=== PATIENT | male | born 1945 | race Caucasian/White ===

== ENCOUNTER → 2017-09-29 12:15 | Outpatient (CLI) | payer MEDICARE, SELFPAY ==
[2017-09-29 12:35] LABS: Cholesterol 163 mg/dL (200); High Density Lipoprotein 46 mg/dL; Triglycerides 117 mg/dL; Very Low Density Lipoprotein 23 mg/dL (5-40)
== END ==
PROVIDERS: Family Provider Internal Medicine; PCP Internal Medicine; Visit Provider Internal Medicine
DX: Z79.899 Other long term (current) drug therapy (principal)
CPT/HCPCS: 80061

== ENCOUNTER → 2017-10-03 10:28 | Outpatient (CLI) | payer MEDICARE, SELFPAY ==
[2017-10-03 10:54] LABS: Absolute Lymphocyte Count 1.34 X10^3/ul (0.83-4.51); Absolute Neutrophil Count 3.2 X10^3/uL (2.0-7.7); Basophil# 0.02 X10^3/uL; Basophil% 0.4 % (0-1); Eosinophil# 0.16 X10^3/uL; Hematocrit 39.6 % (40-54); Hemoglobin 13.1 g/dl (13.0-16.5); Lymphocyte # 1.34 X10^3/ul (4.0); Lymphocyte % 25.5 % (19-41); Mean Corp Hgb Conc 33.1 g/gl (32-36); Mean Corpuscular Hgb 32.5 pg (27.0-32.0); Mean Corpuscular Volume 98.3 fL (80-94); Mean Platelet Vol. 10.4 fl (6.2-12.0); Monocyte# 0.53 X10^3/uL; Monocyte% 10.1 % (0-10); Neutrophil % 60.8 % (47-70); Platelet Count 186 K/mm3 (150-450); RBC Distribution Width CV 12.7 % (11.6-14.6); RBC Distribution Width SD 45.2 fl (35.1-43.9); Red Blood Count 4.03 M/mm3 (4.6-6.2); White Blood Count 5.3 K/mm3 (4.4-11.0)
[2017-10-03 10:55] LABS: POSITIVE COUNT NO; POSITIVE DIFFERENTIAL NO
[2017-10-03 11:02] LABS: Erythrocyte Sedimentation Rate 19 mm/hr (0-20)
[2017-10-03 11:38] LABS: ALB/GLOB Ratio 0.9 RATIO (0.9-2.4); AST(SGOT) 26 U/L (15-37); Alanine Aminotransfer ALT/SGPT 36 U/L (16-61); Albumin, Serum 3.4 g/dL (3.2-5.0); Alkaline Phosphatase 72 U/L (45-117); Anion Gap 6 (5-15); BUN 19 mg/dL (7-18); BUN/Creat Ratio 16.5 RATIO (10-20); Calcium,Total 8.6 mg/dL (8.5-10.1); Chloride 110 mmol/L (98-107); Creatinine, Serum 1.15 mg/dL (0.70-1.30); EST Glomerular Filtration Rate 66 mL/min (>60); Est Glom Filt Rate - Afr Amer 80 mL/min (>60); Globulin 3.8 g/dL (2.2-4.2); Glucose 99 mg/dL (74-106); Potassium 4.5 mmol/L (3.5-5.1); Protein, Total 7.2 g/dL (6.4-8.2); Sodium Level 144 mmol/L (136-145)
== END ==
PROVIDERS: Family Provider Internal Medicine; PCP Internal Medicine; Visit Provider Internal Medicine
DX: R97.20 Elevated prostate specific antigen [PSA] (principal); N39.0 Urinary tract infection, site not specified; R78.81 Bacteremia; M10.071 Idiopathic gout, right ankle and foot
CPT/HCPCS: 36415; 80053; 84153; 84550; 85025; 85652

== ENCOUNTER → 2018-12-31 09:56 | Outpatient (CLI) | payer MEDICARE, SELFPAY ==
[2018-12-31 11:40] LABS: AST(SGOT) 26 U/L (15-37); Alanine Aminotransfer ALT/SGPT 35 U/L (16-61); Albumin, Serum 3.7 g/dL (3.2-5.0); Alkaline Phosphatase 85 U/L (45-117); Anion Gap 6 (5-15); BUN 20 mg/dL (7-18); BUN/Creat Ratio 16.1 RATIO (10-20); Calcium,Total 8.6 mg/dL (8.5-10.1); Chloride 110 mmol/L (98-107); Cholesterol 179 mg/dL (200); Creatinine, Serum 1.24 mg/dL (0.70-1.30); EST Glomerular Filtration Rate 60 mL/min (>60); Est Glom Filt Rate - Afr Amer 73 mL/min (>60); Globulin 3.6 g/dL (2.2-4.2); Glucose 100 mg/dL (74-106); High Density Lipoprotein 51 mg/dL; Potassium 4.4 mmol/L (3.5-5.1); Protein, Total 7.3 g/dL (6.4-8.2); Sodium Level 143 mmol/L (136-145); Triglycerides 130 mg/dL; Uric Acid 8.2 mg/dL (3.5-7.2); Very Low Density Lipoprotein 26 mg/dL (5-40)
== END ==
PROVIDERS: Nurse Practitioner; Family Provider Internal Medicine; PCP Internal Medicine; Referring Provider Internal Medicine; Visit Provider Internal Medicine
DX: E78.00 Pure hypercholesterolemia, unspecified (principal); R94.5 Abnormal results of liver function studies; M10.071 Idiopathic gout, right ankle and foot
CPT/HCPCS: 36415; 80053; 80061; 84550

== ENCOUNTER → 2019-02-05 13:59 | Outpatient (CLI) | payer MEDICARE, SELFPAY ==
[2019-02-05 14:25] LABS: Anion Gap 5 (5-15); BUN 22 mg/dL (7-18); BUN/Creat Ratio 17.9 RATIO (10-20); Calcium,Total 8.9 mg/dL (8.5-10.1); Chloride 111 mmol/L (98-107); Creatinine, Serum 1.23 mg/dL (0.70-1.30); EST Glomerular Filtration Rate 61 mL/min (>60); Est Glom Filt Rate - Afr Amer 74 mL/min (>60); Glucose 100 mg/dL (74-106); Potassium 4.5 mmol/L (3.5-5.1); Sodium Level 144 mmol/L (136-145)
== END ==
PROVIDERS: Family Provider Internal Medicine; PCP Internal Medicine; Referring Provider Nurse Practitioner; Visit Provider Nurse Practitioner
DX: N28.9 Disorder of kidney and ureter, unspecified (principal)
CPT/HCPCS: 80048

== ENCOUNTER → 2020-05-01 11:50 | Outpatient (CLI) | payer MEDICARE, SELFPAY ==
[2020-05-01 13:53] LABS: PSA,Total - Annual Screen 1.14 ng/mL (0.00-4.00)
== END ==
PROVIDERS: PCP Internal Medicine; Referring Provider Urology; Visit Provider Urology
DX: R97.20 Elevated prostate specific antigen [PSA] (principal)
CPT/HCPCS: 36415; 84153; G0103

== ENCOUNTER → 2020-05-08 11:39 | Outpatient (CLI) | payer MEDICARE, SELFPAY ==
[2020-05-08 18:08] LABS: Thyroid Stim Hormone (TSH) 2.64 uIU/mL (0.358-3.74)
== END ==
PROVIDERS: PCP Internal Medicine; Referring Provider Nurse Practitioner; Visit Provider Nurse Practitioner
DX: R00.1 Bradycardia, unspecified (principal)
CPT/HCPCS: 84443

== ENCOUNTER → 2020-05-24 12:31 | Outpatient (CLI) | payer MEDICARE, SELFPAY ==
[2020-05-17 13:13] VITALS: BMI 28.8
--- NOTE | 2020-05-24 12:35 | ECHOD_ITS ---
Reason For Study: ARRHYTHMIA Procedure This was a 2D Doppler, Color Flow transthoracic echocardiogram. Exam performed in department. Left Ventricle Normal LV size. Mild concentric left ventricular hypertrophy. Left ventricular systolic function is normal. The estimated ejection fraction is 55 %. No regional wall motion abnormalities noted. Right Ventricle Normal RV size. Normal systolic function. Atria Normal left atrium. Normal right atrium. Mitral Valve Mild focal mitral valve calcification. Trivial eccentric mitral valve insufficiency. Tricuspid Valve Normal tricuspid valve. Mild tricuspid valve insufficiency. Pulmonary artery systolic pressure is 34 mmHg. Aortic Valve Normal aortic valve. Trisinus/trileaflet aortic valve. Pulmonic Valve Normal pulmonic valve. Great Vessels Normal aortic root. The pulmonary artery is normal size. Normal inferior vena cava. Pericardium/Pleural No pericardial effusion. MMode/2D Measurements & Calculations LVIDd: 4.1 cm IVSd: 1.2 cm Ao root diam: 3.2 cm LVIDs: 3.2 cm LVPWd: 1.2 cm RVDd: 3.7 cm FS: 21.9 % LAV(MOD-bp): 61.9 ml LA A4 area: 20.3 cm2 LA dimension(2D): 4.2 cm LAV(MOD-bp) Indexed: 28.9 ml/m2 LAV(MOD-sp2): 59.6 ml LAV(MOD-sp4): 60.1 ml RA A4 area: 17.1 cm2 Time Measurements MV dec time: 0.17 sec Doppler Measurements & Calculations MV E max bony: 106.2 cm/sec Lat Peak E' Bony: 10.0 cm/sec Med Peak E' Bony: 6.9 cm/sec MV A max bony: 93.3 cm/sec E/E' lat: 10.6 E/E' med: 15.4 MV E/A: 1.1 Ao V2 max: 117.2 cm/sec LV V1 max: 100.0 cm/sec PA V2 max: 101.0 cm/sec Ao max P.5 mmHg LV V1 max P.0 mmHg TR max bony: 275.7 cm/sec TR max P.4 mmHg Interpretation Summary Normal LV size. Left ventricular systolic function is normal. The estimated ejection fraction is 55 %. Mild concentric left ventricular hypertrophy. Pulmonary artery systolic pressure is 34 mmHg. Ordering Physician: Cam Marin Referring Physician: Sanjeev Gil Performed By: Danielle Hernandez RDCS, RVT
== END ==
PROVIDERS: PCP Internal Medicine; Referring Provider Internal Medicine Cardiovascular Disease; Visit Provider Internal Medicine Cardiovascular Disease
DX: R06.00 Dyspnea, unspecified (principal)
CPT/HCPCS: 93225; 93226; 93306

== ENCOUNTER → 2020-10-02 11:38 | Outpatient (CLI) | payer MEDICARE, SELFPAY ==
[2020-05-17 13:13] VITALS: BMI 28.8
== END ==
PROVIDERS: PCP Internal Medicine; Referring Provider Internal Medicine Cardiovascular Disease; Visit Provider Internal Medicine Cardiovascular Disease
DX: R53.83 Other fatigue (principal); R06.00 Dyspnea, unspecified; R00.1 Bradycardia, unspecified; E78.5 Hyperlipidemia, unspecified
CPT/HCPCS: 93225; 93226

== ENCOUNTER → 2020-10-11 10:42 | Outpatient (CLI) | payer MEDICARE, SELFPAY ==
[2020-05-17 13:13] VITALS: BMI 28.8
[2020-10-11 13:10] LABS: Anion Gap 3 (5-15); BUN 25 mg/dL (7-18); BUN/Creat Ratio 18.1 RATIO (10-20); Calcium,Total 8.8 mg/dL (8.5-10.1); Chloride 109 mmol/L (98-107); Creatinine, Serum 1.38 mg/dL (0.70-1.30); EST Glomerular Filtration Rate 53 mL/min (>60); Est Glom Filt Rate - Afr Amer 64 mL/min (>60); Glucose 95 mg/dL (74-106); Potassium 4.6 mmol/L (3.5-5.1); Sodium Level 142 mmol/L (136-145)
== END ==
PROVIDERS: PCP Internal Medicine; Referring Provider Internal Medicine Cardiovascular Disease; Visit Provider Internal Medicine Cardiovascular Disease
DX: R53.83 Other fatigue (principal); R06.00 Dyspnea, unspecified; I49.49 Other premature depolarization; E78.5 Hyperlipidemia, unspecified
CPT/HCPCS: 36415; 80048

== ENCOUNTER 2020-11-05 18:31 | Inpatient (IN) | payer MEDICARE, SELFPAY ==
[2020-05-17 13:13] VITALS: BMI 28.8
[2020-11-05] VITALS (11 sets, daily range): BP systolic 109–188; BP diastolic 58–91; PULSE 63–98; RESP 16–22; TEMP 37–38.9; O2SAT 93–98; BMI 29.2; BMI 29.1
--- NOTE | 2020-11-05 18:58 | EDS_ITS ---
HPI History of Present Illness Chief Complaint: Complaint Detail of Chief Complaint: Fever and chills. I think I have another UTI Informant: patient and spouse/S.O. Pain Onset: Yesterday Timing: Continuous Current Severity: Mild Maximum Severity: Mild Narrative Narrative: 75-year-old male states last evening he started having subjective fever and chills. He has had similar symptoms before with UTIs. states he normally gets 1 a year. He denies any dysuria. He does have enlarged prostate and has a history of urinary retention. States when he got here to the emergency department tonight in triage he had nausea and vomiting. Both he and his had Covid shots. He denies any respiratory symptoms. He denies abdominal pain. Prior similar symptoms: Yes Recent Illness/[facility]ospital[facility]: [facility] Medical History (Updated 11/05/20 @ 22:[address] 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 Cholelithiasis Elevated PSA Gout Hematospermia High grade prostatic intraepithelial neoplasia Hyperlipidemia Hypertrophy of prostate with urinary obstruction Obstructive sleep apnea Tremor Home Medications aspirin 81 mg tablet,delayed release 81 mg PO DAILY 05/16/20 [History Last Taken Unknown] atorvastatin 20 mg tablet 20 mg PO QHS 05/16/20 [History Last Taken Unknown] loratadine 10 mg tablet 10 mg PO DAILY 05/16/20 [History Last Taken Unknown] multivitamin 1 tab PO DAILY 05/16/20 [History Last Taken Unknown] primidone 50 mg tablet 50 mg PO DAILY 05/16/20 [History Last Taken Unknown] tamsulosin 0.4 mg capsule 0.4 mg PO QHS 05/16/20 [History Last Taken Unknown] naproxen sodium 220 mg capsule 220 mg PO .QOD cap 05/17/20 [History Last Taken Unknown] metoprolol succinate 50 mg tablet,extended release 24 hr 50 mg PO DAILY #90 tab 05/30/20 [Rx Last Taken Unknown] furosemide 40 mg tablet 40 mg PO DAILY #30 tablet 10/09/20 [Rx Last Taken Unknown] Allergy/AdvReac Type Severity Reaction Status Date / Time No Known Allergies Allergy Unverified 11/05/20 18:36 Family History Mother CVA (cerebral vascular accident) Cancer Father Heart disease Surgical History History of colonoscopy History of colonoscopy with polypectomy History of open reduction and internal fixation (ORIF) procedure History of tonsillectomy and adenoidectomy Social History Smoking Status: Former smoker alcohol intake: current alcohol intake frequency: a few times a week ROS ROS ED ROS Narrative Male developed fever and chills last night. Nausea and vomiting today. Review of Systems ROS Unobtainable: Denies due to encephalopathy Constitutional Constitutional ED: Reports chills and fever(s) Eyes Eyes: Denies change in vision ENT ENT ED: Denies sore throat Cardiovascular Cardiovascular: Denies chest pain Respiratory/Chest Respiratory/Chest: Denies cough or dyspnea Gastrointestinal Gastrointestinal: Reports nausea and vomiting; Denies abdominal pain or diarrhea Genitourinary Genitourinary ED: Reports urinary frequency; Denies dysuria or hematuria Musculoskeletal Musculoskeletal: Denies arthralgias or myalgias Integumentary Denies rash Neurologic Neurologic: Denies headache(s) Psychiatric Psychiatric: Denies depression Endocrine Endocrinology: Denies polyuria Hematologic/Lymphatic Hematologic/Lymphatic: Denies easy bruising Allergic/Immunologic Allergic/Immunologic ED: Denies urticaria EXAM Physical Exam Narrative Exam Narrative: Elderly male appears ill vital signs are stable except because of fever 102.1. He may be septic. HEENT exam unremarkable except mild dry mucous membranes. Neck nontender no meningismus. Lungs clear to auscultation. Heart regular rhythm rate in the 90s. Abdomen soft nontender normal bowel sounds no peritoneal signs. Moving all 4 extremities. No rashes. No edema. Neurologically is awake and alert with no focal motor deficits. Back is nontender no CVA tenderness. Const Vital Signs: 11/05/20 18:32 11/05/20 18:46 11/05/20 19:32 Temperature 102.1 F H 102.1 F H Temperature Source Oral Oral Pulse Rate 98 98 Respiratory Rate 20 H 20 H Blood Pressure 160/80 H 160/80 H Blood Pressure Mean 106 106 Pulse Ox 93 93 98 Oxygen Delivery Method Room Air Room Air Room Air 11/05/20 19:57 Temperature 99.8 F H Temperature Source Oral Pulse Rate 74 Respiratory Rate 16 Blood Pressure 145/66 H Blood Pressure Mean 92 Pulse Ox 94 Oxygen Delivery Method Room Air Positive well nourished and well developed General Appearance ED: well developed HEENT normocephalic and atraumatic Eyes PERRL and EOMs intact bilaterally Neck no lymphadenopathy, supple and no JVD General: Negative for tenderness Resp normal respiratory effort and clear to auscultation bilaterally Cardio regular rate, regular rhythm and no murmurs Rate: Negative for bradycardia or tachycardic GI non-tender, non-distended and no masses Auscultation: normoactive bowel sounds Palpation: soft Rectal Exam: Negative for tenderness no CVA tenderness Back/Spine no CVA tenderness Extremity normal to inspection General Extremety ED: Negative for edema or tenderness General Extremity: Negative for edema Neuro oriented x3, CN's II-XII intact bilaterally, moves all extremities and no focal motor deficits Sensorium / Orientation: alert, oriented to place and oriented to time Motor Exam: strength 5/5 throughout Psych mental status grossly normal Skin Lesions: no lesions Rashes: no rashes MDM MDM MDM Narrative Medical decision making narrative: Older male accompanied by his with fever may have recurrent UTI may be septic. Versus other etiologies for his fever. No respiratory or Covid symptoms. He will undergo a septic work-up. He will be treated with a liter of normal saline to start, IV Zofran for nausea, Tylenol for fever and started on IV antibiotics. Labs returned consistent with severe sepsis secondary to urosepsis. He received a liter normal saline. He will be given a second. He is already received IV antibiotics. I spoken to the hospitalist the patient will be admitted to the ICU. Currently he looks much better than on arrival. He is awake and alert. His vital signs are stable. Lab Data Attestation: I reviewed the patient's lab results. Lab results narrative: CBC shows an elevated white count 17.9. Normal hemoglobin. PT/INR unremarkable. Chemistries unremarkable normal gap of 8 creatinine of 1.47. Liver enzymes are normal. Chest x-ray shows no acute abnormality. Portable 1 view read by myself. Urinalysis is consistent with urinary tract infection with white cells and bacteria. Lactic acid is 2.1. Labs: Laboratory Results - last 24 hr 11/05/20 11/05/20 11/05/20 18:48 18:48 18:48 WBC 17.9 H RBC 4.29 L Hgb 14.1 Hct 42.0 MCV 97.9 H MCH 32.9 H MCHC 33.6 RDW Std Deviation 45.2 H RDW Coeff of Jina 12.4 Plt Count 152 MPV 11.5 Immature Gran % (Auto) 0.600 Neut % (Auto) 83.2 H Lymph % (Auto) 3.3 L [place] % (Auto) 12.7 H Eos % (Auto) 0.0 Baso % (Auto) 0.2 Absolute Neuts (auto) 14.9 H Absolute Lymphs (auto) 0.59 L Nucleated RBC % 0 Differential Comment SCANNED Diff Path Review May foll Platelet Estimate ADEQUATE RBC Morphology NORM C+C PT 14.9 INR 1.2 APTT 30.0 Sodium 137 Potassium 4.2 Chloride 105 Carbon Dioxide 24.0 Anion Gap 8 BUN 21 H Creatinine 1.47 H Estim Creat Clear Calc 44.82 Est GFR (MDRD) Af Amer 60 Est GFR (MDRD) Non-Af 49 L BUN/Creatinine Ratio 14.3 Glucose 171 H Lactic Acid Calcium 8.6 Total Bilirubin 1.10 H AST 19 ALT 27 Alkaline Phosphatase 77 Total Protein 7.4 Albumin 3.5 Globulin 3.9 Albumin/Globulin Ratio 0.9 Urine Color Urine Clarity Urine pH Ur Specific [place] Urine Protein Urine Glucose (UA) Urine Ketones Urine Occult Blood Urine Nitrite Urine Bilirubin Urine Urobilinogen Ur Leukocyte Esterase Urine RBC Urine WBC Ur Squamous Epith Cells Amorphous Sediment Urine Bacteria Urine Mucus 11/05/20 11/05/20 19:23 19:30 WBC RBC Hgb Hct MCV MCH MCHC RDW Std Deviation RDW Coeff of Jina Plt Count MPV Immature Gran % (Auto) Neut % (Auto) Lymph % (Auto) [place] % (Auto) Eos % (Auto) Baso % (Auto) Absolute Neuts (auto) Absolute Lymphs (auto) Nucleated RBC % Differential Comment Diff Path Review Platelet Estimate RBC Morphology PT INR APTT Sodium Potassium Chloride Carbon Dioxide Anion Gap BUN Creatinine Estim Creat Clear Calc Est GFR (MDRD) Af Amer Est GFR (MDRD) Non-Af BUN/Creatinine Ratio Glucose Lactic Acid 2.1 H* Calcium Total Bilirubin AST ALT Alkaline Phosphatase Total Protein Albumin Globulin Albumin/Globulin Ratio Urine Color Yellow Urine Clarity Sl. Cloudy Urine pH 7.0 Ur Specific [place] 1.005 Urine Protein 30 H Urine Glucose (UA) Normal Urine Ketones Negative Urine Occult Blood 50 H Urine Nitrite Positive H Urine Bilirubin Negative Urine Urobilinogen Normal Ur Leukocyte Esterase 500 H Urine RBC 5-10 SEEN Urine WBC >100 SEEN Ur Squamous Epith Cells 0-5 SEEN Amorphous Sediment 1+ PHOS Urine Bacteria 2+ Urine Mucus 0 SEEN Radiography Diagnostic Testing: Radiology Impression Chest X-Ray 11/05/20 19:05 IMPRESSION: Questionable small left-sided pleural effusion. Electronically Signed: Samuel Rivero MD at 19:35 EDT Tel , Service support , EKG Initial EKG: Attestation: I personally reviewed and interpreted this EKG as follows: Interpretation: Sinus Rhythm and No Acute Injury Pattern Comments: Normal sinus rhythm rate of 71 no acute signs of [place] nor ischemia nor dysrhythmia. 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, Discussing w/Consultants, Arranging Admission or Transfer and Performing Direct Patient Care at Bedside Discharge Plan Triage Chief Complaint: Complaint ED Provider: Akhil Trammell Dx/Rx/DC Orders Clinical Impression: Severe sepsis, Urinary tract infection, Fever, Leukocytosis Prescriptions: No Action primidone 50 mg tablet 50 mg PO DAILY RF: 0 atorvastatin 20 mg tablet 20 mg PO QHS RF: 0 tamsulosin [Flomax] 0.4 mg capsule 0.4 mg PO QHS RF: 0 loratadine [Claritin] 10 mg tablet 10 mg PO DAILY RF: 0 aspirin [Adult Aspirin Regimen] 81 mg tablet,delayed release (DR/EC) 81 mg PO DAILY RF: 0 multivitamin Tablet 1 tab PO DAILY RF: 0 naproxen sodium [Aleve] 220 mg capsule 220 mg PO .QOD RF: 0 metoprolol succinate [Toprol XL] 50 mg tablet extended release 24 hr 50 mg PO DAILY Qty: 90 RF: 3 furosemide [Lasix] 40 mg tablet 40 mg PO DAILY Qty: 30 RF: 4 Primary Care Provider: Sanjeev Gil Referrals: Sanjeev Gil MD [Primary Care Provider] -
--- NOTE | 2020-11-05 19:04 | EKG12_ITS ---
Test Reason : Blood Pressure : / mmHG Vent. Rate : 071 BPM Atrial Rate : 071 BPM P-R Int : 152 ms QRS Dur : 080 ms QT Int : 382 ms P-R-T Axes : -27 037 043 degrees QTc Int : 415 ms Sinus rhythm with Premature atrial complexes Otherwise normal ECG Confirmed by RITA NIELSON, TYREL ([id number]), acquisitions editor BROOKE BARRON ([id number]) on 11/07/2020 9:09:26 AM Referred By: BRENDEN Confirmed By:TYREL SALINAS MD
--- NOTE | 2020-11-05 19:05 | RAD_ITS ---
STUDY: X-RAY CHEST REASON FOR EXAM: Male, 75 years old. fever TECHNIQUE: 1 view COMPARISON: None. FINDINGS: Cardiomediastinal silhouette is unremarkable. The right costophrenic angle is sharp. There is questionable small left-sided pleural effusion.. Lungs are clear. The trachea is midline. There is no pneumothorax. Degenerative changes of the thoracic spine are noted. RAD/Chest 1 View (Portable) IMPRESSION: Questionable small left-sided pleural effusion. Electronically Signed: Samuel Rivero MD at 19:35 EDT Tel , Service support ,
[2020-11-05 19:16] LABS: Absolute Lymphocyte Count 0.59 X10^3/uL (0.83-4.51); Absolute Neutrophil Count 14.9 X10^3/uL (2.0-7.7); Basophil# 0.03 X10^3/uL; Basophil% 0.2 % (0-1); Hemoglobin 14.1 g/dL (13.0-16.5); Lymphocyte # 0.59 X10^3/ul (0.83-4.51); Lymphocyte % 3.3 % (19-41); Mean Corp Hgb Conc 33.6 g/dL (32-36); Mean Corpuscular Hgb 32.9 pg (27.0-32.0); Mean Corpuscular Volume 97.9 fL (80-94); Mean Platelet Vol. 11.5 fl (6.2-12.0); Monocyte# 2.28 X10^3/uL; Monocyte% 12.7 % (0-10); NRBC Flagged by Analyzer 0 % (0-5); Neutrophil # 14.89 X10^3/uL (2.7-7.7); Neutrophil % 83.2 % (47-70); POSITIVE DIFFERENTIAL YES; Platelet Count 152 K/mm3 (150-450); RBC Distribution Width CV 12.4 % (11.6-14.6); RBC Distribution Width SD 45.2 fl (35.1-43.9); Red Blood Count 4.29 M/mm3 (4.6-6.2); White Blood Count 17.9 K/mm3 (4.4-11.0)
[2020-11-05] MEDS: Ondansetron 4 MG/2 ML Vial IV (19:21)
[2020-11-05] MEDS: 0.9% Normal Saline 1,000 ML 999 ML IV ×2 (19:22→22:42)
[2020-11-05] MEDS: Acetaminophen 500 MG Tablet 1000 MG PO (19:22)
[2020-11-05 19:23] LABS: International Normalized Ratio 1.2; Prothrombin Time (Protime)PT. 14.9 SECONDS (11.7-14.9)
[2020-11-05 19:33] LABS: ALB/GLOB Ratio 0.9 RATIO (0.9-2.4); AST(SGOT) 19 U/L (15-37); Alanine Aminotransfer ALT/SGPT 27 U/L (16-61); Albumin, Serum 3.5 g/dL (3.2-5.0); Alkaline Phosphatase 77 U/L (45-117); Anion Gap 8 (5-15); BUN 21 mg/dL (7-18); BUN/Creat Ratio 14.3 RATIO (10-20); Calcium,Total 8.6 mg/dL (8.5-10.1); Chloride 105 mmol/L (98-107); Creatinine, Serum 1.47 mg/dL (0.70-1.30); EST Glomerular Filtration Rate 49 mL/min (>60); Est Glom Filt Rate - Afr Amer 60 mL/min (>60); Estimated Creatinine Clearance 44.82 ml/min; Globulin 3.9 g/dL (2.2-4.2); Glucose 171 mg/dL (74-106); Potassium 4.2 mmol/L (3.5-5.1); Protein, Total 7.4 g/dL (6.4-8.2); Sodium Level 137 mmol/L (136-145)
[2020-11-05 19:44] LABS: Differential Indicated SCAN CRITERIA MET
[2020-11-05 19:47] LABS: Mucous, Urine 0 SEEN /hpf (<or=2+)
[2020-11-05] MEDS: Ceftriaxone 1 GM/50 ML BAG IV (19:52)
[2020-11-05 19:54] LABS: Color, Urine Yellow (Yellow); Glucose, Dipstick Normal (Normal); Ketone-Dipstick Negative (Negative); Leukocyte Esterase-Dipstick 500 /ul (Negative); Nitrite-Dipstick Positive (Negative); Occult Blood-Urine 50 /ul (Negative); Protein-Dipstick 30 mg/dl (Negative); Specific Gravity, Urine 1.005 (1.002-1.030); Urine Bilirubin Dipstick Negative (Negative); Urine Clarity Sl. Cloudy (Clear); Urine Urobilinogen Normal (Normal)
[2020-11-05 20:05] LABS: Red Blood Cells-Urine 5-10 SEEN /hpf (0-5); Squamous Epithelial Cells - UA 0-5 SEEN /hpf (0-5); White Blood Cells >100 SEEN /hpf (0-5)
[2020-11-05 20:06] LABS: Amorphous Sediment 1+ PHOS; Bacteria 2+ /hpf (None Seen)
[2020-11-05 20:17] LABS: Differential Comment SCANNED; Platelet Estimate ADEQUATE (ADEQ); Red Cell Morphology NORM C+C NORMAL (NORM C&C)
[2020-11-05 20:24] LABS: Lactic Acid 2.1 mmol/L (0.4-1.9)
--- NOTE | 2020-11-05 22:15 | PCM.HP.STD ---
HPI - General General Date of Admission: 11/05/20 Chief Complaint: Chills and rigors HPI Narrative .RAJAT CAMACHO, is a 75 M with a significant history of obstructive sleep apnea; and essential tremors who presents to the emergency department with chills and rigors that started a day before presentation. Of note patient has baseline essential tremors but his tremors worsened. Associated with symptoms is fever. He reports a home temperature of more than 99 F without knowing the exact temperature. He reports increasing urinary frequency with decreased urinary flow. Because his symptoms became persistent he came to the emergency department. He reports anorexia. Patient with history of frequent UTI 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 Cholelithiasis Elevated PSA Gout Hematospermia High grade prostatic intraepithelial neoplasia Hyperlipidemia Hypertrophy of prostate with urinary obstruction Multiple premature ventricular complexes Obstructive sleep apnea Tremor Home Medications aspirin 81 mg tablet,delayed release 81 mg PO DAILY 05/16/20 [History Last Taken Unknown] atorvastatin 20 mg tablet 20 mg PO QHS 05/16/20 [History Last Taken Unknown] loratadine 10 mg tablet 10 mg PO DAILY 05/16/20 [History Last Taken Unknown] multivitamin 1 tab PO DAILY 05/16/20 [History Last Taken Unknown] primidone 50 mg tablet 50 mg PO DAILY 05/16/20 [History Last Taken Unknown] tamsulosin 0.4 mg capsule 0.4 mg PO QHS 05/16/20 [History Last Taken Unknown] naproxen sodium 220 mg capsule 220 mg PO .QOD cap 05/17/20 [History Last Taken Unknown] metoprolol succinate 50 mg tablet,extended release 24 hr 50 mg PO DAILY #90 tab 05/30/20 [Rx Last Taken Unknown] furosemide 40 mg tablet 40 mg PO DAILY #30 tablet 10/09/20 [Rx Last Taken Unknown] Allergy/AdvReac Type Severity Reaction Status Date / Time No Known Allergies Allergy Unverified 11/05/20 18:36 Family History Mother CVA (cerebral vascular accident) Cancer Father Heart disease Surgical History History of colonoscopy History of colonoscopy with polypectomy History of open reduction and internal fixation (ORIF) procedure History of tonsillectomy and adenoidectomy Social History Smoking Status: Former smoker alcohol intake: current alcohol intake frequency: a few times a week ROS ROS Narrative 12 point review of system is negative except as stated in HPI Vital Signs Vital Signs Vital Signs: 11/05/20 18:32 11/05/20 18:46 11/05/20 19:32 Temperature 102.1 F H 102.1 F H Temperature Source Oral Oral Pulse Rate 98 98 Respiratory Rate 20 H 20 H Blood Pressure 160/80 H 160/80 H Blood Pressure Mean 106 106 Pulse Ox 93 93 98 Oxygen Delivery Method Room Air Room Air Room Air 11/05/20 19:57 Temperature 99.8 F H Temperature Source Oral Pulse Rate 74 Respiratory Rate 16 Blood Pressure 145/66 H Blood Pressure Mean 92 Pulse Ox 94 Oxygen Delivery Method Room Air Physical Exam Narrative Alert and oriented x3 Nontraumatic; normocephalic Lung clear to auscultate Heart sounds S1-S2. No murmur, gallop or rubs. Abdomen bowel sounds present soft, nontender nondistended Extremity without edema cyanosis or clubbing. Integumentary: Very warm to touch. Lab / Micro Data Result Diagrams: 11/05/20 18:48 11/05/20 18:48 Labs: Laboratory Results - last 24 hr 11/05/20 11/05/20 11/05/20 18:48 18:48 18:48 WBC 17.9 H RBC 4.29 L Hgb 14.1 Hct 42.0 MCV 97.9 H MCH 32.9 H MCHC 33.6 RDW Std Deviation 45.2 H RDW Coeff of Jina 12.4 Plt Count 152 MPV 11.5 Immature Gran % (Auto) 0.600 Neut % (Auto) 83.2 H Lymph % (Auto) 3.3 L [place] % (Auto) 12.7 H Eos % (Auto) 0.0 Baso % (Auto) 0.2 Absolute Neuts (auto) 14.9 H Absolute Lymphs (auto) 0.59 L Nucleated RBC % 0 Differential Comment SCANNED Diff Path Review May foll Platelet Estimate ADEQUATE RBC Morphology NORM C+C PT 14.9 INR 1.2 APTT 30.0 Sodium 137 Potassium 4.2 Chloride 105 Carbon Dioxide 24.0 Anion Gap 8 BUN 21 H Creatinine 1.47 H Estim Creat Clear Calc 44.82 Est GFR (MDRD) Af Amer 60 Est GFR (MDRD) Non-Af 49 L BUN/Creatinine Ratio 14.3 Glucose 171 H Lactic Acid Calcium 8.6 Total Bilirubin 1.10 H AST 19 ALT 27 Alkaline Phosphatase 77 Total Protein 7.4 Albumin 3.5 Globulin 3.9 Albumin/Globulin Ratio 0.9 Urine Color Urine Clarity Urine pH Ur Specific [place] Urine Protein Urine Glucose (UA) Urine Ketones Urine Occult Blood Urine Nitrite Urine Bilirubin Urine Urobilinogen Ur Leukocyte Esterase Urine RBC Urine WBC Ur Squamous Epith Cells Amorphous Sediment Urine Bacteria Urine Mucus 11/05/20 11/05/20 19:23 19:30 WBC RBC Hgb Hct MCV MCH MCHC RDW Std Deviation RDW Coeff of Jina Plt Count MPV Immature Gran % (Auto) Neut % (Auto) Lymph % (Auto) [place] % (Auto) Eos % (Auto) Baso % (Auto) Absolute Neuts (auto) Absolute Lymphs (auto) Nucleated RBC % Differential Comment Diff Path Review Platelet Estimate RBC Morphology PT INR APTT Sodium Potassium Chloride Carbon Dioxide Anion Gap BUN Creatinine Estim Creat Clear Calc Est GFR (MDRD) Af Amer Est GFR (MDRD) Non-Af BUN/Creatinine Ratio Glucose Lactic Acid 2.1 H* Calcium Total Bilirubin AST ALT Alkaline Phosphatase Total Protein Albumin Globulin Albumin/Globulin Ratio Urine Color Yellow Urine Clarity Sl. Cloudy Urine pH 7.0 Ur Specific [place] 1.005 Urine Protein 30 H Urine Glucose (UA) Normal Urine Ketones Negative Urine Occult Blood 50 H Urine Nitrite Positive H Urine Bilirubin Negative Urine Urobilinogen Normal Ur Leukocyte Esterase 500 H Urine RBC 5-10 SEEN Urine WBC >100 SEEN Ur Squamous Epith Cells 0-5 SEEN Amorphous Sediment 1+ PHOS Urine Bacteria 2+ Urine Mucus 0 SEEN Radiology Impression Chest X-Ray 11/05/20 19:05 IMPRESSION: Questionable small left-sided pleural effusion. Electronically Signed: Samuel Rivero MD at 19:35 EDT Tel , Service support , Assessment & Plan Assessment/Plan (1) Severe sepsis: (2) Urinary tract infection: QUALIFIERS: Hematuria presence: without hematuria Urinary tract infection type: acute cystitis Qualified Code(s): N30.00 - Acute cystitis without hematuria PLAN: Severe sepsis secondary to UTI. SIRS criteria: T-max of 102.1F; review of medical department labs showed white count of 17,900 Urinalysis was reviewed. Urinalysis showed urine protein of 30; urine occult blood positive; positive urine nitrite; positive pyuria; urine bacteria 2+; squamous cell 0-5. Lactic acid of 2.1; trend. Received normal saline boluses at emergency department. Urine culture blood culture was obtained emergency department; follow. Started on Ceftriaxone at the emergency department and continued. Impression of chest x-ray by radiology: Questionable small left sided pleural effusion. Would resume home Lasix. Previous urine culture was reviewed. Urine culture on 12/14/15 was presumptive for E. coli; pansensitive Trend CBC and BMP. Admit patient to intensive care unit and consult legal administrator. Hypertension Blood pressure is within goal Metoprolol and furosemide continued Trend blood pressure Echocardiogram on 05/24/2020 was reviewed. Echocardiogram with mild concentric left ventricular hypertrophy. Estimated ejection fraction of 55%. No regional wall motion abnormalities noted. Pulmonary artery systolic pressure was 34 mmHg. Mild tricuspid valve insufficiency. Trivial eccentric mitral valve insufficiency. Essential tremor Primidone continued DVT prophylaxis Subcutaneous Lovenox ordered.
[2020-11-05 23:35] LABS: Reflex Lactate? Y
[2020-11-06] VITALS (13 sets, daily range): BP systolic 108–152; BP diastolic 48–104; PULSE 60–79; RESP 16–23; TEMP 37.2–38.2; O2SAT 91–96
[2020-11-06] MEDS: Acetaminophen 325 MG Tablet 650 MG PO ×2 (00:03→09:26)
[2020-11-06] MEDS: MELATONIN 3 MG TABLET PO (00:03)
[2020-11-06 05:09] LABS: Absolute Lymphocyte Count 1.09 X10^3/uL (0.83-4.51); Absolute Neutrophil Count 13.5 X10^3/uL (2.0-7.7); Basophil# 0.02 X10^3/uL; Basophil% 0.1 % (0-1); Hemoglobin 11.7 g/dL (13.0-16.5); Lymphocyte # 1.09 X10^3/ul (0.83-4.51); Lymphocyte % 6.5 % (19-41); Mean Corp Hgb Conc 32.5 g/dL (32-36); Mean Corpuscular Hgb 32.4 pg (27.0-32.0); Mean Corpuscular Volume 99.7 fL (80-94); Mean Platelet Vol. 10.7 fl (6.2-12.0); Monocyte% 12.5 % (0-10); NRBC Flagged by Analyzer 0 % (0-5); Neutrophil # 13.47 X10^3/uL (2.7-7.7); Neutrophil % 79.9 % (47-70); POSITIVE DIFFERENTIAL YES; Platelet Count 125 K/mm3 (150-450); RBC Distribution Width CV 12.6 % (11.6-14.6); RBC Distribution Width SD 46.2 fl (35.1-43.9); Red Blood Count 3.61 M/mm3 (4.6-6.2); White Blood Count 16.8 K/mm3 (4.4-11.0)
[2020-11-06 05:17] LABS: Differential Indicated SCAN CRITERIA MET
[2020-11-06 05:22] LABS: Anion Gap 6 (5-15); BUN 18 mg/dL (7-18); BUN/Creat Ratio 13.8 RATIO (10-20); Chloride 109 mmol/L (98-107); EST Glomerular Filtration Rate 57 mL/min (>60); Est Glom Filt Rate - Afr Amer 69 mL/min (>60); Estimated Creatinine Clearance 50.68 ml/min; Glucose 128 mg/dL (74-106); Potassium 4.1 mmol/L (3.5-5.1); Sodium Level 139 mmol/L (136-145)
--- NOTE | 2020-11-06 05:46 | CON.PCM.CC_ITS ---
Assessment & Plan Assessment/Plan (1) Severe sepsis: PLAN: RECOMMENDATIONS: 1. Continue antimicrobials, pending finalized culture results. 2. Continue home medications. 3. Encourage incentive spirometer use while in bed. 4. The patient is medically stable for transfer out of the intensive care unit. IMPRESSIONS: 1. Severe sepsis secondary to presumptive urinary tract source of infection The patient did receive IV fluids overnight, but is otherwise hemodynamically stable. Urine cultures are currently pending. Plan to continue current antim icrobial therapy, pending finalized culture results. 2. Hypertension/hyperlipidemia/BPH/essential tremor Complicates care, management, recovery and prognosis. Continue home medications as indicated. This note was generated with [employer] dictation software. It may contain incorrect words, spelling, and punctuation that were not noted in checking the note before signing. HPI Consult Data Date of Consult: 11/06/20 HPI Narrative Reason for Consultation: Severe sepsis HPI Narrative: The patient is a 75-year-old male, with a history as outlined below, who presented to the emergency department on November 05 with subjective fevers and chills. The patient reported that he felt as if he was developing a urinary tract infection. He did report the presence of polyuria, but denied any dysuria or hematuria. He denies any abdominal pain. He did report feeling nauseated and experienced one episode of emesis upon presentation to the hospital yesterday. Prior urine culture has demonstrated growth of pansensitive E. coli. On presentation to the emergency department, the patient was noted to have a l ow-grade fever but was otherwise hemodynamically stable and maintaining appropriate oxygen saturations on room air. Initial laboratory evaluation revealed an elevated white blood cell count to 18,000. Coagulation profile was within normal limits. Chemistry profile was notable for a creatinine of 1.47. Lactate was elevated to 2.1. Total bilirubin was increased to 1.1. Urine analysis was positive for nitrites, leukocyte esterase and 2+ urine bacteria. Plain film chest x-ray was largely unremarkable, with the exception of a possible small left pleural effusion. The patient was placed on antimicrobials and received supplemental IV fluid hydration. He was subsequently admitted to the medical intensive care unit for further management. 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 Cholelithiasis Elevated PSA Gout Hearing loss, left Hearing loss, right Hematospermia High cholesterol High grade prostatic intraepithelial neoplasia Hyperlipidemia Hypertrophy of prostate with urinary obstruction Irregular heart beat Multiple premature ventricular complexes Non-smoker Obstructive sleep apnea Sleep apnea Tremor Wears hearing aid in both ears Home Medications aspirin 81 mg tablet,delayed release 81 mg PO DAILY 05/16/20 [History Last Taken Unknown] atorvastatin 20 mg tablet 20 mg PO QHS 05/16/20 [History Last Taken Unknown] loratadine 10 mg tablet 10 mg PO DAILY 05/16/20 [History Last Taken Unknown] multivitamin 1 tab PO DAILY 05/16/20 [History Last Taken Unknown] primidone 50 mg tablet 50 mg PO DAILY 05/16/20 [History Last Taken Unknown] tamsulosin 0.4 mg capsule 0.4 mg PO QHS 05/16/20 [History Last Taken Unknown] naproxen sodium 220 mg capsule 220 mg PO .QOD cap 05/17/20 [History Last Taken Unknown] metoprolol succinate 50 mg tablet,extended release 24 hr 50 mg PO DAILY #90 tab 05/30/20 [Rx Last Taken Unknown] furosemide 40 mg tablet 40 mg PO DAILY #30 tablet 10/09/20 [Rx Last Taken Unknown] Allergy/AdvReac Type Severity Reaction Status Date / Time No Known Allergies Allergy Unverified 11/05/20 18:36 Family History Mother CVA (cerebral vascular accident) Cancer Father Heart disease Surgical History (Updated 11/05/20 @ 23:43 by Pascale Giles) H/O rectal polypectomy History of colonoscopy History of colonoscopy with polypectomy History of open reduction and internal fixation (ORIF) procedure History of tonsillectomy and adenoidectomy Social History Smoking Status: Never smoker alcohol intake: current alcohol intake frequency: a few times a week ROS Constitutional Constitutional: Reports chills and fever(s) Eyes Eyes: Denies blurry vision or change in vision ENT HEENT: Denies dizziness, dysphagia, headache(s) or nasal discharge Cardiovascular Cardiovascular: Denies chest pain, dizziness or dyspnea Respiratory/Chest Respiratory/Chest: Denies chest tightness, cough, dyspnea or hemoptysis Gastrointestinal Gastrointestinal: Reports nausea and vomiting; Denies abdominal pain Genitourinary Genitourinary: Reports polyuria; Denies dysuria or hematuria Musculoskeletal Musculoskeletal: Denies arthralgias or back pain Integumentary Integumentary: Denies lesions Neurologic Neurologic: Denies abnormal gait, abnormal speech or confusion Psychiatric Psychiatric: Denies anxiety Endocrine Endocrinology: Denies fatigue Hematologic/Lymphatic Hematologic/Lymphatic: Denies easy bleeding or easy bruising Physical Exam Const alert, oriented x3 and no apparent distress General Appearance: cooperative and well developed HEENT normocephalic, head/scalp atraumatic and moist oral mucous membranes Eyes PERRL and EOMs intact bilaterally Neck supple General: trachea midline Resp normal respiratory effort Auscultation: Negative for rales, rhonchi or wheezes Cardio regular rate and regular rhythm GI normal to inspection, nondistended, normoactive bowel sounds Extremity no clubbing, cyanosis or edema Skin no rashes or lesions noted Neuro oriented x3 and CN's II-XII intact bilaterally Neuro Narrative: Essential tremor present Psych cooperative and affect normal Lab / Micro Data Result Diagrams: 11/06/20 05:00 11/06/20 05:00 Labs: Laboratory Results - last 24 hr 11/05/20 11/05/20 11/05/20 18:48 18:48 18:48 WBC 17.9 H RBC 4.29 L Hgb 14.1 Hct 42.0 MCV 97.9 H MCH 32.9 H MCHC 33.6 RDW Std Deviation 45.2 H RDW Coeff of Jina 12.4 Plt Count 152 MPV 11.5 Immature Gran % (Auto) 0.600 Neut % (Auto) 83.2 H Lymph % (Auto) 3.3 L [place] % (Auto) 12.7 H Eos % (Auto) 0.0 Baso % (Auto) 0.2 Absolute Neuts (auto) 14.9 H Absolute Lymphs (auto) 0.59 L Nucleated RBC % 0 Differential Comment SCANNED Diff Path Review May foll Platelet Estimate ADEQUATE RBC Morphology NORM C+C PT 14.9 INR 1.2 APTT 30.0 Sodium 137 Potassium 4.2 Chloride 105 Carbon Dioxide 24.0 Anion Gap 8 BUN 21 H Creatinine 1.47 H Estim Creat Clear Calc 44.82 Est GFR (MDRD) Af Amer 60 Est GFR (MDRD) Non-Af 49 L BUN/Creatinine Ratio 14.3 Glucose 171 H Lactic Acid Calcium 8.6 Total Bilirubin 1.10 H AST 19 ALT 27 Alkaline Phosphatase 77 Total Protein 7.4 Albumin 3.5 Globulin 3.9 Albumin/Globulin Ratio 0.9 Urine Color Urine Clarity Urine pH Ur Specific [place] Urine Protein Urine Glucose (UA) Urine Ketones Urine Occult Blood Urine Nitrite Urine Bilirubin Urine Urobilinogen Ur Leukocyte Esterase Urine RBC Urine WBC Ur Squamous Epith Cells Amorphous Sediment Urine Bacteria Urine Mucus 11/05/20 11/05/20 11/06/20 19:23 19:30 00:10 WBC RBC Hgb Hct MCV MCH MCHC RDW Std Deviation RDW Coeff of Jina Plt Count MPV Immature Gran % (Auto) Neut % (Auto) Lymph % (Auto) Dod[place]idge % (Auto) Eos % (Auto) Baso % (Auto) Absolute Neuts (auto) Absolute Lymphs (auto) Nucleated RBC % Differential Comment Diff Path Review Platelet Estimate RBC Morphology PT INR APTT Sodium Potassium Chloride Carbon Dioxide Anion Gap BUN Creatinine Estim Creat Clear Calc Est GFR (MDRD) Af Amer Est GFR (MDRD) Non-Af BUN/Creatinine Ratio Glucose Lactic Acid 2.1 H* 2.0 Calcium Total Bilirubin AST ALT Alkaline Phosphatase Total Protein Albumin Globulin Albumin/Globulin Ratio Urine Color Yellow Urine Clarity Sl. Cloudy Urine pH 7.0 Ur Specific [place] 1.005 Urine Protein 30 H Urine Glucose (UA) Normal Urine Ketones Negative Urine Occult Blood 50 H Urine Nitrite Positive H Urine Bilirubin Negative Urine Urobilinogen Normal Ur Leukocyte Esterase 500 H Urine RBC 5-10 SEEN Urine WBC >100 SEEN Ur Squamous Epith Cells 0-5 SEEN Amorphous Sediment 1+ PHOS Urine Bacteria 2+ Urine Mucus 0 SEEN 11/06/20 11/06/20 05:00 05:00 WBC 16.8 H RBC 3.61 L Hgb 11.7 L Hct 36.0 L MCV 99.7 H MCH 32.4 H MCHC 32.5 RDW Std Deviation 46.2 H RDW Coeff of Jina 12.6 Plt Count 125 L MPV 10.7 Immature Gran % (Auto) 1.000 H Neut % (Auto) 79.9 H Lymph % (Auto) 6.5 L [place] % (Auto) 12.5 H Eos % (Auto) 0.0 Baso % (Auto) 0.1 Absolute Neuts (auto) 13.5 H Absolute Lymphs (auto) 1.09 Nucleated RBC % 0 Differential Comment Diff Path Review Platelet Estimate RBC Morphology PT INR APTT Sodium 139 Potassium 4.1 Chloride 109 H Carbon Dioxide 24.0 Anion Gap 6 BUN 18 Creatinine 1.30 Estim Creat Clear Calc 50.68 Est GFR (MDRD) Af Amer 69 Est GFR (MDRD) Non-Af 57 L BUN/Creatinine Ratio 13.8 Glucose 128 H Lactic Acid Calcium 8.0 L Total Bilirubin AST ALT Alkaline Phosphatase Total Protein Albumin Globulin Albumin/Globulin Ratio Urine Color Urine Clarity Urine pH Ur Specific [place] Urine Protein Urine Glucose (UA) Urine Ketones Urine Occult Blood Urine Nitrite Urine Bilirubin Urine Urobilinogen Ur Leukocyte Esterase Urine RBC Urine WBC Ur Squamous Epith Cells Amorphous Sediment Urine Bacteria Urine Mucus Radiology Impression Chest X-Ray 11/05/20 19:05 IMPRESSION: Questionable small left-sided pleural effusion. Electronically Signed: Samuel Rivero MD at 19:35 EDT Tel , Service support , Charges/Coding Visit Charges Inpatient E&M: 96714 Init Hosp L3
[2020-11-06 06:10] LABS: Differential Comment SCANNED
--- NOTE | 2020-11-06 07:58 | PCM.PN.HOSP ---
Subjective Subjective Patient is a 75-year-old gentleman admitted with fever and chills. His work-up was consistent with acute cystitis with severe sepsis admitted to intensive care unit for subsequent management Objective Data Objective Data Vital Signs: Vital Signs Temp Pulse Resp BP Pulse Ox 98.9 F 61 20 H 133/59 H 95 11/06/20 04:00 11/06/20 07:00 11/06/20 06:00 11/06/20 06:00 11/06/20 06:00 Oxygen Delivery Method Room Air Weight: 94.8 kg Body Mass Index (BMI) 29.1 Intake & Output: Intake and Output for Last 24 Hours 11/04/20 11/05/20 11/06/20 23:59 23:59 23:59 Intake Total 1050 / 1170 1120 / 1120 Output Total 475 / 475 Balance 1050 / 920 645 / 645 Lab / Micro Data Result Diagrams: 11/06/20 05:00 11/06/20 05:00 Radiography Diagnostic Testing: Radiology Impression Chest X-Ray 11/05/20 19:05 IMPRESSION: Questionable small left-sided pleural effusion. Electronically Signed: Samuel Rivero MD at 19:35 EDT Tel , Service support , Physical Exam Narrative GENERAL: cooperative HEENT: Atraumatic; EYES; Anicteric, Normal Conjunctiva NECK; supple, normal thyroid, RESPIRATORY: Diminished to auscultation CARDIOVASCULAR: Regular S1 S2, GI: soft, normoactive bowel sounds, : No Renal angle tenderness; EXTREMITIES: No edema, no clubbing, MUSCULOSKELETAL: no muscle waisting NEURO: Awake; no lateralizing signs. SKIN: No Rash PSYCH; Flat affect Assessment & Plan Assessment/Plan (1) Severe sepsis: (2) Urinary tract infection: QUALIFIERS: Urinary tract infection type: acute cystitis Hematuria presence: without hematuria Qualified Code(s): N30.00 - Acute cystitis without hematuria PLAN: Patient is a 75-year-old gentleman presented with fever and chills and assessment of acute cystitis made admitted to intensive care unit for subsequent management 1. Severe sepsis ?Secondary to acute cystitis patient has been admitted to the intensive care unit where patient is currently being managed per protocol with aggressive IV fluid resuscitation respiratory antibiotic therapy after cultures have been sent. Patient progress being monitored with serial lactic acid levels and CBC as well as blood pressure monitoring. 2. Hypertension - Blood pressure controlled, home medications continued with dose adjustment as needed 3. BPH -patient is on tamsulosin did continue 4. History of multiple PVCs ?Patient is on beta-blockers for rate control 5. Obstructive sleep apnea ?PAP therapy as needed 6. Dyslipidemia -Patient is on statin therapy, continued at home dose 7. Essential tremors ?Patient is on primidone did continue 8. DVT prophylaxis ?On enoxaparin Visit Charges Inpatient E&M: 77564 [facility] Hosp L3
[2020-11-06] MEDS: Primidone 50 MG Tablet PO (09:25)
[2020-11-06] MEDS: Ceftriaxone 1 GM/50 ML BAG IV ×2 (09:25→21:50)
[2020-11-06] MEDS: Metoprolol(XL)Succ 50 MG Tablet PO (09:25)
[2020-11-06] MEDS: Tamsulosin HCl 0.4 MG Capsule PO (09:25)
[2020-11-06] MEDS: Loratadine 10 MG Tablet PO (09:25)
[2020-11-06] MEDS: Multivitamins,Therapeutic Tablet 1 TABLET PO (09:25)
[2020-11-06] MEDS: Enoxaparin 40 MG/0.4 ML Syringe SC (09:25)
[2020-11-06] MEDS: 0.9% Saline Lock 10 ML Syringe IV (09:27)
--- NOTE | 2020-11-06 11:55 | CASEMGMT ---
RN CM PROGRAM PROPOSALS COORDINATOR CM to room to meet with patient for initial transition planning/care coordination assessment. RN ESTEPHANIA introduced self and role at [facility]. Pt voices understanding and consents to assessment at this time. Pt resting in bed in no distress at this time. [place], @ bedside. Pt is A/O at this time and answers all questions appropriately. Care providers, pharmacy, and demographics verified/updated at this time. PCP: Dr Gil Specialists: Dr Marin--cardiology, Dr Paul--urology, Dr Acosta-dermatology Preferred Pharmacy: [facility] Insurance: [employer] [facility] Prescription Benefit: Yes Living Will/HPOA: Pt does not currently have LW/HCPOA and declines info at this time. Pt states we have this in progress, stating that they met w/an manufacturing engineer in May but then they went to [place] for a few months and did not get it all completed. Pt made aware that he can contact as an out-pt and make appt in the future if he decides he would like to talk with someone about this or would like to utilize [facility] social work for advanced directive completion. Given [employer] card with information and contact number. Pt expresses understanding. LNOK: [place] Living Arrangements: Lives w/his [place], in one-story home w/finished basement. One step to enter. Denies difficulty w/stairs. Independent w/ADL's and does the yard work. manages home tasks. Transportation: Pt states drives self and states no transportation concerns at this time. also drives DME: Denies using any DME and denies needs. HHC/SNF: No history of either. No needs identified. Pt denies need for HHC or therapy Pt wishes to return home and states has no concerns with going home at time of discharge. CM to follow for any discharge planning/needs. Pt/ voice no concerns/needs at this time. Advised pt to ask for CM if any questions/concerns/needs arise. They voice understanding. PLAN: Home w/ and discharge plans in place. Kiran HAMPTON RN, CM
[2020-11-06 13:42] LABS: Pathologist Review Reviewed
[2020-11-06 13:45] LABS: Pathologist Review Reviewed
[2020-11-06] MEDS: Atorvastatin Calcium 20 MG Tablet PO (21:49)
[2020-11-06] MEDS: Aspirin E.C. 81 MG Tablet PO (21:49)
[2020-11-07 02:08] VITALS: BP 135/59; PULSE 62; RESP 16; TEMP 36.8; O2SAT 96
[2020-11-07] MEDS: Acetaminophen 325 MG Tablet 650 MG PO (05:11)
--- NOTE | 2020-11-07 05:57 | PCM.PN.INT ---
Subjective Subjective The patient was seen and examined at the bedside this morning. Events from the last 24 hours have been reviewed. The patient is currently afebrile, hemodynamically stable and maintaining appropriate oxygen saturations on room air. The patient has done well clinically following transfer out of the ICU yesterday. Objective Data Objective Data The patient's most recent lab work, culture data and imaging studies have all been personally reviewed. Blood cultures are pending. 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 Vital Signs: Vital Signs Temp Pulse Resp BP Pulse Ox 98.2 F 62 16 135/59 H 96 11/07/20 02:08 11/07/20 02:08 11/07/20 02:08 11/07/20 02:08 11/07/20 02:08 Oxygen Delivery Method Room Air Weight: 208 lb 12.444 oz Body Mass Index (BMI) 29.1 Intake & Output: Intake and Output for Last 24 Hours 11/05/20 11/06/20 11/07/20 23:59 23:59 23:59 Intake Total 1050 / 1170 1690 / 1990 650 / 650 Output Total 1175 / 1500 1200 / 1200 Balance 1050 / 920 515 / 490 -550 / -550 Lab / Micro Data Attestation: I reviewed the patient's lab results. 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 Physical Exam Const alert, oriented x3 and no apparent distress General Appearance: cooperative and well developed HEENT normocephalic, head/scalp atraumatic and moist oral mucous membranes Eyes PERRL and EOMs intact bilaterally Neck supple General: trachea midline Resp normal respiratory effort Auscultation: Negative for rales, rhonchi or wheezes Cardio regular rate and regular rhythm GI normal to inspection, nondistended, normoactive bowel sounds Extremity no clubbing, cyanosis or edema Skin no rashes or lesions noted Neuro oriented x3 and CN's II-XII intact bilaterally Neuro Narrative: Essential tremor present Psych cooperative and affect normal Assessment & Plan Assessment/Plan (1) Severe sepsis: PLAN: RECOMMENDATIONS: 1. Transition to p.o. antibiotic regimen to complete treatment course. 2. Continue home medications. 3. Encourage incentive spirometer use while in bed. IMPRESSIONS: 1. Severe sepsis secondary to presumptive urinary tract source of infection Resolved. The patient was initially treated with IV fluids and antimicrobials. He remained otherwise clinically and hemodynamically stable. 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 From my perspective, the patient can be transitioned to p.o. antibiotics to complete his treatment regimen. 2. Hypertension/hyperlipidemia/BPH/essential tremor Complicates care, management, recovery and prognosis. Continue home medications as indicated. This note was generated with [employer] dictation software. It may contain incorrect words, spelling, and punctuation that were not noted in checking the note before signing. Visit Charges Inpatient E&M: 38385 Subs Hosp L2
[2020-11-07 06:56] LABS: Absolute Lymphocyte Count 1.21 X10^3/uL (0.83-4.51); Basophil# 0.02 X10^3/uL; Basophil% 0.2 % (0-1); Eosinophil# 0.22 X10^3/uL; Eosinophils% 1.9 % (0-5); Hematocrit 35.6 % (40-54); Hemoglobin 11.8 g/dL (13.0-16.5); Lymphocyte # 1.21 X10^3/ul (0.83-4.51); Lymphocyte % 10.2 % (19-41); Mean Corp Hgb Conc 33.1 g/dL (32-36); Mean Corpuscular Hgb 33.1 pg (27.0-32.0); Mean Corpuscular Volume 99.7 fL (80-94); Mean Platelet Vol. 11.1 fl (6.2-12.0); Monocyte# 1.28 X10^3/uL; Monocyte% 10.8 % (0-10); NRBC Flagged by Analyzer 0 % (0-5); Neutrophil # 8.98 X10^3/uL (2.7-7.7); Neutrophil % 75.7 % (47-70); Platelet Count 116 K/mm3 (150-450); RBC Distribution Width CV 12.4 % (11.6-14.6); RBC Distribution Width SD 45.8 fl (35.1-43.9); Red Blood Count 3.57 M/mm3 (4.6-6.2); White Blood Count 11.9 K/mm3 (4.4-11.0)
[2020-11-07 07:26] LABS: Anion Gap 6 (5-15); BUN 18 mg/dL (7-18); BUN/Creat Ratio 15.3 RATIO (10-20); Calcium,Total 8.5 mg/dL (8.5-10.1); Chloride 108 mmol/L (98-107); Creatinine, Serum 1.18 mg/dL (0.70-1.30); EST Glomerular Filtration Rate 64 mL/min (>60); Est Glom Filt Rate - Afr Amer 77 mL/min (>60); Estimated Creatinine Clearance 55.84 ml/min; Glucose 102 mg/dL (74-106); Magnesium 1.8 mg/dL (1.6-2.6); Potassium 3.7 mmol/L (3.5-5.1); Sodium Level 139 mmol/L (136-145)
--- NOTE | 2020-11-07 07:26 | PCM.PN.HOSP ---
Subjective Subjective Patient seen had a relatively uneventful night urine cultures came back positive for Klebsiella pneumonia. Sensitivities reviewed. Patient requested to be discharged home. Objective Data Objective Data Vital Signs: Vital Signs Temp Pulse Resp BP Pulse Ox 98.2 F 62 16 135/59 H 96 11/07/20 02:08 11/07/20 02:08 11/07/20 02:08 11/07/20 02:08 11/07/20 02:08 Oxygen Delivery Method Room Air Weight: 94.7 kg Body Mass Index (BMI) 29.1 Intake & Output: Intake and Output for Last 24 Hours 11/05/20 11/06/20 11/07/20 23:59 23:59 23:59 Intake Total 1050 / 1170 1690 / 1990 650 / 650 Output Total 1175 / 1500 1200 / 1200 Balance 1050 / 920 515 / 490 -550 / -550 Lab / Micro Data Result Diagrams: 11/07/20 06:30 11/07/20 06:30 Labs: Laboratory Results - last 24 hr 11/05/20 11/06/20 11/07/20 18:48 05:00 06:30 WBC 11.9 H RBC 3.57 L Hgb 11.8 L Hct 35.6 L MCV 99.7 H MCH 33.1 H MCHC 33.1 RDW Std Deviation 45.8 H RDW Coeff of Jina 12.4 Plt Count 116 L MPV 11.1 Immature Gran % (Auto) 1.200 H Neut % (Auto) 75.7 H Lymph % (Auto) 10.2 L [place] % (Auto) 10.8 H Eos % (Auto) 1.9 Baso % (Auto) 0.2 Absolute Neuts (auto) 9.0 H Absolute Lymphs (auto) 1.21 Nucleated RBC % 0 Diff Path Review Reviewed Reviewed Sodium Potassium Chloride Carbon Dioxide Anion Gap BUN Creatinine Estim Creat Clear Calc Est GFR (MDRD) Af Amer Est GFR (MDRD) Non-Af BUN/Creatinine Ratio Glucose Calcium Magnesium 11/07/20 06:30 WBC RBC Hgb Hct MCV MCH MCHC RDW Std Deviation RDW Coeff of Jina Plt Count MPV Immature Gran % (Auto) Neut % (Auto) Lymph % (Auto) [place] % (Auto) Eos % (Auto) Baso % (Auto) Absolute Neuts (auto) Absolute Lymphs (auto) Nucleated RBC % Diff Path Review Sodium 139 Potassium 3.7 Chloride 108 H Carbon Dioxide 25.0 Anion Gap 6 BUN 18 Creatinine 1.18 Estim Creat Clear Calc 55.84 Est GFR (MDRD) Af Amer 77 Est GFR (MDRD) Non-Af 64 BUN/Creatinine Ratio 15.3 Glucose 102 Calcium 8.5 Magnesium 1.8 Micro: Microbiology 11/05/20 19:30 Urine, Clean Catch Urine Culture - Final Klebsiella pneumoniae sp pneum Physical Exam Narrative GENERAL: cooperative HEENT: Atraumatic; EYES; Anicteric, Normal Conjunctiva NECK; supple, normal thyroid, RESPIRATORY: Diminished to auscultation CARDIOVASCULAR: Regular S1 S2, GI: soft, normoactive bowel sounds, : No Renal angle tenderness; EXTREMITIES: No edema, no clubbing, MUSCULOSKELETAL: no muscle waisting NEURO: Awake; no lateralizing signs. SKIN: No Rash PSYCH; Flat affect Assessment & Plan Assessment/Plan (1) Severe sepsis: (2) Urinary tract infection: QUALIFIERS: Hematuria presence: without hematuria Urinary tract infection type: acute cystitis Qualified Code(s): N30.00 - Acute cystitis without hematuria PLAN: Patient is a 75-year-old gentleman presented with fever and chills and assessment of acute cystitis made admitted to intensive care unit for subsequent management 1. Severe sepsis ?Secondary to acute cystitis patient has been admitted to the intensive care unit where patient is currently being managed per protocol with aggressive IV fluid resuscitation respiratory antibiotic therapy after cultures have been sent. Patient progress being monitored with serial lactic acid levels and CBC as well as blood pressure monitoring. -11/07/2020 : cultures came back positive for Klebsiella pneumonia 2. Hypertension - Blood pressure controlled, home medications continued with dose adjustment as needed 3. BPH -patient is on tamsulosin did continue 4. History of multiple PVCs ?Patient is on beta-blockers for rate control 5. Obstructive sleep apnea ?PAP therapy as needed 6. Dyslipidemia -Patient is on statin therapy, continued at home dose 7. Essential tremors ?Patient is on primidone did continue 8. DVT prophylaxis ?On enoxaparin Visit Charges Inpatient E&M: 30443 Subs Hosp L2
[2020-11-07 07:38] VITALS: O2SAT 94
[2020-11-07 07:56] VITALS: PULSE 60
[2020-11-07] MEDS: Loratadine 10 MG Tablet PO (07:56)
[2020-11-07] MEDS: Enoxaparin 40 MG/0.4 ML Syringe SC (07:56)
[2020-11-07] MEDS: Primidone 50 MG Tablet PO (07:56)
[2020-11-07] MEDS: Metoprolol(XL)Succ 50 MG Tablet PO (07:56)
[2020-11-07] MEDS: Tamsulosin HCl 0.4 MG Capsule PO (07:56)
[2020-11-07] MEDS: Multivitamins,Therapeutic Tablet 1 TABLET PO (07:56)
[2020-11-07 08:10] VITALS: BP 146/72; PULSE 60; RESP 18; TEMP 36.5; O2SAT 95
--- NOTE | 2020-11-07 09:24 | DS.PCM_ITS ---
Providers Date of Admission: 11/05/20 Primary Care Physician: Dr. Sanjeev Gil MD Consultations 11/05/20 23:45 Consult: Professor Of Special Education / Pulmonary Medicine Routine Consulting Provider: Rush Hirsch Reason for Consult: Critical care EMERGENT Consult: No MD Notified: Yes Date Notified:: 11/05/20 Time Notified: 22:14 Method of Notification: Text Reason For Visit: SEVERE SEPSIS Diagnosis Discharge Diagnosis (1) Severe sepsis: Status: Acute Code(s): A41.9 - Sepsis, unspecified organism; R65.20 - Severe sepsis without septic shock (2) Urinary tract infection: Status: Acute Code(s): N39.0 - Urinary tract infection, site not specified Qualifiers: Hematuria presence: without hematuria Urinary tract infection type: acu te cystitis Qualified Code(s): N30.00 - Acute cystitis without hematuria Medications at Discharge Home Medications aspirin 81 mg tablet,delayed release 81 mg PO DAILY 05/16/20 atorvastatin 20 mg tablet 20 mg PO QHS 05/16/20 loratadine 10 mg tablet 10 mg PO DAILY 05/16/20 multivitamin 1 tab PO DAILY 05/16/20 primidone 50 mg tablet 50 mg PO DAILY 05/16/20 tamsulosin 0.4 mg capsule 0.4 mg PO QHS 05/16/20 naproxen sodium 220 mg capsule 220 mg PO .QOD cap 05/17/20 metoprolol succinate 50 mg tablet,extended release 24 hr 50 mg PO DAILY #90 tab 05/30/20 furosemide 40 mg tablet 40 mg PO DAILY #30 tablet 10/09/20 ciprofloxacin HCl [Cipro] 500 mg PO BID #14 tab 11/07/20 Hospital Course Summary of Care Provided Minutes Spent on Discharge: 35 Hospital Course: 1. Severe sepsis ?Secondary to acute cystitis patient has been admitted to the intensive care unit where patient is currently being managed per protocol with aggressive IV fluid resuscitation respiratory antibiotic therapy after cultures have been sent. Patient progress being monitored with serial lactic acid levels and CBC as well as blood pressure monitoring. -11/07/2020 : cultures came back positive for Klebsiella pneumonia patient was discharged home on ciprofloxacin for 7 days 2. Hypertension - Blood pressure controlled, home medications continued with dose adjustment as needed 3. BPH -patient is on tamsulosin did continue 4. History of multiple PVCs ?Patient is on beta-blockers for rate control 5. Obstructive sleep apnea ?PAP therapy as needed 6. Dyslipidemia -Patient is on statin therapy, continued at home dose 7. Essential tremors ?Patient is on primidone did continue 8. DVT prophylaxis ?On enoxaparin Physical Exam Const alert General Appearance: cooperative HEENT head/scalp atraumatic Eyes conjunctivae normal Resp normal respiratory effort and no use of accessory muscles Cardio regular rate and regular rhythm GI normal to inspection, nondistended, normoactive bowel sounds Extremity no clubbing, cyanosis or edema Neuro no focal motor deficits Sensorium / Orientation: oriented to person Psych affect normal ABG / Lab / Microbiology Data Result Diagrams: 11/07/20 06:30 11/07/20 06:30 Laboratory: Laboratory Results - last 24 hr 11/05/20 11/06/20 11/07/20 18:48 05:00 06:30 WBC 11.9 H RBC 3.57 L Hgb 11.8 L Hct 35.6 L MCV 99.7 H MCH 33.1 H MCHC 33.1 RDW Std Deviation 45.8 H RDW Coeff of Jina 12.4 Plt Count 116 L MPV 11.1 Immature Gran % (Auto) 1.200 H Neut % (Auto) 75.7 H Lymph % (Auto) 10.2 L [place] % (Auto) 10.8 H Eos % (Auto) 1.9 Baso % (Auto) 0.2 Absolute Neuts (auto) 9.0 H Absolute Lymphs (auto) 1.21 Nucleated RBC % 0 Diff Path Review Reviewed Reviewed Sodium Potassium Chloride Carbon Dioxide Anion Gap BUN Creatinine Estim Creat Clear Calc Est GFR (MDRD) Af Amer Est GFR (MDRD) Non-Af BUN/Creatinine Ratio Glucose Calcium Magnesium 11/07/20 06:30 WBC RBC Hgb Hct MCV MCH MCHC RDW Std Deviation RDW Coeff of Jina Plt Count MPV Immature Gran % (Auto) Neut % (Auto) Lymph % (Auto) [place] % (Auto) Eos % (Auto) Baso % (Auto) Absolute Neuts (auto) Absolute Lymphs (auto) Nucleated RBC % Diff Path Review Sodium 139 Potassium 3.7 Chloride 108 H Carbon Dioxide 25.0 Anion Gap 6 BUN 18 Creatinine 1.18 Estim Creat Clear Calc 55.84 Est GFR (MDRD) Af Amer 77 Est GFR (MDRD) Non-Af 64 BUN/Creatinine Ratio 15.3 Glucose 102 Calcium 8.5 Magnesium 1.8 Microbiology: Microbiology 11/05/20 19:30 Urine Culture - Final Urine, Clean Catch Klebsiella pneumoniae sp pneum Microbiology 11/05/20 19:30 Urine, Clean Catch Urine Culture - Final Klebsiella pneumoniae sp pneum D/C Instructions Discharge Diet: No restrictions Discharge Activity: Return to Normal Activity Call your doctor if you observe: Fever of 101 or Higher, Shortness of breath, Fainting spells and Chest pain Meaningful Use Info Meaningful Use Diagnoses (Choose all that apply): None applicable Discharge Plan Admission Admit Date/Time: 11/05/20 22:14 Primary Reason for Your Visit: Sepsis secondary to acute cystitis Attending Provider: Art Prado Primary Care Provider: Sanjeev Gil Consulting Providers: Rush Hirsch Instructions Patient Instructions: Sepsis, ED Bladder Infection, Male (Adult) Discharge Orders/Prescriptions Prescriptions: New ciprofloxacin HCl [Cipro] 500 mg tablet 500 mg PO BID Qty: 14 RF: 0 Continued primidone 50 mg tablet 50 mg PO DAILY RF: 0 atorvastatin 20 mg tablet 20 mg PO QHS RF: 0 tamsulosin [Flomax] 0.4 mg capsule 0.4 mg PO QHS RF: 0 loratadine [Claritin] 10 mg tablet 10 mg PO DAILY RF: 0 aspirin [Adult Aspirin Regimen] 81 mg tablet,delayed release (DR/EC) 81 mg PO DAILY RF: 0 multivitamin Tablet 1 tab PO DAILY RF: 0 naproxen sodium [Aleve] 220 mg capsule 220 mg PO .QOD RF: 0 metoprolol succinate [Toprol XL] 50 mg tablet extended release 24 hr 50 mg PO DAILY Qty: 90 RF: 3 furosemide [Lasix] 40 mg tablet 40 mg PO DAILY Qty: 30 RF: 4 Referrals / Follow Up: Sanjeev Gil MD [Primary Care Provider] - In 1 Week Disposition Disposition (needs filled in before D/C Order can be placed): Home, self care Visit Charges Inpatient E&M: 54374 Disch Hosp
[2020-11-07] MEDS: 0.9% Saline Lock 10 ML Syringe IV (09:52)
[2020-11-07] MEDS: Ceftriaxone 1 GM/50 ML BAG IV (09:52)
--- NOTE | 2020-11-07 11:45 | PHA.DC.MC ---
Pharmacy Service has performed discharge medication reconciliation and counseling for this patient. 1. CIPROFLOXACIN 500MG PO BID X 7 DAYS The patient's discharge medication list was reviewed for discrepancies and discrepancies were resolved. Home Medications aspirin 81 mg tablet,delayed release 81 mg PO DAILY 05/16/20 atorvastatin 20 mg tablet 20 mg PO QHS 05/16/20 loratadine 10 mg tablet 10 mg PO DAILY 05/16/20 multivitamin 1 tab PO DAILY 05/16/20 primidone 50 mg tablet 50 mg PO DAILY 05/16/20 tamsulosin 0.4 mg capsule 0.4 mg PO QHS 05/16/20 naproxen sodium 220 mg capsule 220 mg PO .QOD cap 05/17/20 metoprolol succinate 50 mg tablet,extended release 24 hr 50 mg PO DAILY #90 tab 05/30/20 furosemide 40 mg tablet 40 mg PO DAILY #30 tablet 10/09/20 ciprofloxacin HCl [Cipro] 500 mg PO BID #14 tab 11/07/20 The patient was counseled on the following discharge medications and changes in medications for homegoing were reviewed. The Reason for Use, instructions for use, and potential side effects were reviewed for all new medications. The patient's questions regarding all of their medications were answered. The patient was able to verbally demonstrate an understanding of their discharge medications. Patient counseled by pharmacy picking technician
== END 2020-11-07 12:34 | disposition home or self-care (01) | DRG 872 ==
LOC: ED 19:14 → ICU 22:21 → MS3 11-06 11:03
PROVIDERS: Admitting Provider Hospitalist; Emergency Provider Emergency Medicine; PCP Internal Medicine; Visit Provider Internal Medicine
DX: A41.9 Sepsis, unspecified organism (principal); N30.00 Acute cystitis without hematuria; R65.20 Severe sepsis without septic shock; G25.0 Essential tremor; G47.33 Obstructive sleep apnea (adult) (pediatric); I10 Essential (primary) hypertension; E78.5 Hyperlipidemia, unspecified; N40.1 Benign prostatic hyperplasia with lower urinary tract symptoms; B96.1 Klebsiella pneumoniae [K. pneumoniae] as the cause of diseases classified elsewhere; I49.3 Ventricular premature depolarization; Z79.899 Other long term (current) drug therapy; Z97.4 Presence of external hearing-aid; Z87.891 Personal history of nicotine dependence; Z87.440 Personal history of urinary (tract) infections; Z82.49 Family history of ischemic heart disease and other diseases of the circulatory system; Z82.3 Family history of stroke
CPT/HCPCS: 36415; 71045; 80048; 80053; 81001; 83605; 83735; 85025; 85610; 85730; 87040; 87077; 87086; 87088; 87186; 93005; 94762; 97162; 97166; 97802; 99285; J7030; A4216; J2405

== ENCOUNTER → 2020-11-27 11:55 | Outpatient (CLI) | payer MEDICARE, SELFPAY ==
[2020-11-05 23:25] VITALS: BMI 29.1
[2020-11-27 12:45] LABS: Absolute Lymphocyte Count 1.13 X10^3/uL (0.83-4.51); Basophil# 0.02 X10^3/uL; Basophil% 0.4 % (0-1); Eosinophil# 0.17 X10^3/uL; Eosinophils% 3.4 % (0-5); Hematocrit 39.8 % (40-54); Hemoglobin 13.1 g/dL (13.0-16.5); Lymphocyte # 1.13 X10^3/ul (0.83-4.51); Lymphocyte % 22.3 % (19-41); Mean Corp Hgb Conc 32.9 g/dL (32-36); Mean Corpuscular Hgb 32.3 pg (27.0-32.0); Mean Platelet Vol. 11.6 fl (6.2-12.0); Monocyte# 0.72 X10^3/uL; Monocyte% 14.2 % (0-10); NRBC Flagged by Analyzer 0 % (0-5); Neutrophil # 3.02 X10^3/uL (2.7-7.7); Neutrophil % 59.5 % (47-70); Platelet Count 182 K/mm3 (150-450); RBC Distribution Width CV 12.3 % (11.6-14.6); RBC Distribution Width SD 44.3 fl (35.1-43.9); Red Blood Count 4.06 M/mm3 (4.6-6.2); White Blood Count 5.1 K/mm3 (4.4-11.0)
== END ==
PROVIDERS: PCP Internal Medicine; Referring Provider Internal Medicine; Visit Provider Internal Medicine
DX: D64.9 Anemia, unspecified (principal)
CPT/HCPCS: 85025

== ENCOUNTER → 2020-11-29 10:56 | Outpatient (CLI) | payer MEDICARE, SELFPAY ==
[2020-11-05 23:25] VITALS: BMI 29.1
[2020-11-29 11:55] LABS: Anion Gap 6 (5-15); BUN 25 mg/dL (7-18); BUN/Creat Ratio 18.1 RATIO (10-20); Calcium,Total 8.8 mg/dL (8.5-10.1); Chloride 108 mmol/L (98-107); Creatinine, Serum 1.38 mg/dL (0.70-1.30); EST Glomerular Filtration Rate 53 mL/min (>60); Est Glom Filt Rate - Afr Amer 64 mL/min (>60); Glucose 96 mg/dL (74-106); Potassium 4.1 mmol/L (3.5-5.1); Sodium Level 141 mmol/L (136-145)
== END ==
PROVIDERS: Nurse Practitioner Family; PCP Internal Medicine; Referring Provider Internal Medicine Cardiovascular Disease; Visit Provider Internal Medicine Cardiovascular Disease
DX: E78.5 Hyperlipidemia, unspecified (principal); R00.1 Bradycardia, unspecified; R06.00 Dyspnea, unspecified; R53.83 Other fatigue
CPT/HCPCS: 36415; 80048

== ENCOUNTER → 2020-12-07 11:35 | Outpatient (CLI) | payer MEDICARE, SELFPAY ==
[2020-12-07 09:26] VITALS: BMI 28.4
[2020-12-07 12:47] LABS: BNP,B-Type NATRIURETIC PEPTIDE 118.6 pg/mL (0-100)
== END ==
PROVIDERS: PCP Internal Medicine; Referring Provider Internal Medicine Cardiovascular Disease; Visit Provider Internal Medicine Cardiovascular Disease
DX: R06.00 Dyspnea, unspecified (principal)
CPT/HCPCS: 36415; 83880

== ENCOUNTER → 2020-12-20 06:07 | Outpatient (CLI) | payer MEDICARE, SELFPAY ==
[2020-12-07 09:26] VITALS: BMI 28.4
--- NOTE | 2020-12-20 17:31 | STRESSREP ---
Stress Test Report Exercise myocardial perfusion stress test. 75-year-old man with a history of exertional fatigue. Stress protocol: Resting EKG demonstrates sinus bradycardia with a rate of 52 bpm normal intervals are noted resting blood pressure 138/68 mmHg. The patient exercised according to the regular Maxi protocol for a total duration of 6 minutes and 17 seconds. The maximum heart rate attained was 122 bpm which was 85% of max infected heart rate the maximum workload was 7.4 metabolic equivalents. At rest there were no ST or T wave changes noted to suggest ischemia and at peak exercise upsloping ST changes were noted with did not meet the criteria for ischemia. No clinical angina was noted. The test was terminated due to leg weakness. The peak blood pressure was 180/94 mmHg. Myocardial perfusion protocol. 14.8 mCi of technetium 99m sestamibi was injected at rest. The patient exercised according to regular Maxi protocol for total duration of 6 minutes and 17 seconds. At peak exercise 44.9 mCi of technetium 99m sestamibi was injected stress images were obtained stress and rest images were reconstructed and compared in the short axis vertical long and horizontal long axis. Gated images were also obtained. Perfusion SPECT analysis: Review of the stress images demonstrate mild reduction of perfusion noted in the mid anterior wall. The septum lateral wall and inferior wall appeared to be well perfused on the stress images. On the resting images there is near normal perfusion noted in the mid anterior wall. The above is suggestive of a mild amount of ischemia at a moderate workload. The rest of the montiel appear to be normally perfused. Gated SPECT analysis: The gated ejection fraction is 64%. Conclusion: Exercise myocardial perfusion stress test with mild mid anterior ischemia present. Mild functional impairment. Preserved ejection fraction.
== END ==
PROVIDERS: PCP Internal Medicine; Referring Provider Internal Medicine Cardiovascular Disease; Visit Provider Internal Medicine Cardiovascular Disease
DX: R06.00 Dyspnea, unspecified (principal)
CPT/HCPCS: 78452; 93017; A9500; A4216

== ENCOUNTER 2020-12-27 06:55 | Day surgery (SDC) | payer MEDICARE, SELFPAY ==
[2020-12-07 09:26] VITALS: BMI 28.4
[2020-12-26 13:05] LABS: Hematocrit 41.4 % (40-54); Hemoglobin 13.4 g/dL (13.0-16.5); Mean Corp Hgb Conc 32.4 g/dL (32-36); Mean Corpuscular Hgb 32.3 pg (27.0-32.0); Mean Corpuscular Volume 99.8 fL (80-94); Mean Platelet Vol. 11.3 fl (6.2-12.0); Platelet Count 157 K/mm3 (150-450); RBC Distribution Width CV 12.6 % (11.6-14.6); RBC Distribution Width SD 46.1 fl (35.1-43.9); Red Blood Count 4.15 M/mm3 (4.6-6.2); White Blood Count 4.9 K/mm3 (4.4-11.0)
[2020-12-26 13:13] LABS: International Normalized Ratio 1.1; Prothrombin Time (Protime)PT. 13.2 SECONDS (11.7-14.9)
[2020-12-26 13:14] LABS: Partial Thromboplast Time 29.2 Seconds (24.1-36.2)
[2020-12-26 13:24] LABS: Anion Gap 4 (5-15); BUN 21 mg/dL (7-18); BUN/Creat Ratio 14.4 RATIO (10-20); Calcium,Total 8.8 mg/dL (8.5-10.1); Chloride 112 mmol/L (98-107); Creatinine, Serum 1.46 mg/dL (0.70-1.30); EST Glomerular Filtration Rate 50 mL/min (>60); Est Glom Filt Rate - Afr Amer 60 mL/min (>60); Glucose 88 mg/dL (74-106); Potassium 4.8 mmol/L (3.5-5.1); Sodium Level 143 mmol/L (136-145)
[2020-12-27 06:49] VITALS: BMI 28.4
--- NOTE | 2020-12-27 08:20 | CL.D_ITS ---
Patient Name: RAJAT CAMACHO Study Date: 12/27/2020 Performing: Cam Marin MD Ht: 70.86 inches 180 cm : 1945 Wt: 205.03 lbs 93 kg Age: 75 Gender: male BSA: 2.13 PROCEDURE(S) PERFORMED [id number] CLINICAL PROFILE AND INDICATIONS Indications: Suspected CAD Heart Failure: None Stress/Imaging Date: 12/20/20ress Test with SPECT MPI: Positive Low Risk CAD Presentations: Symptom unlikely to be ischemic. CONCLUSIONS Non obstructive coronary arteries RECOMMENDATIONS Medical therapy DESCRIPTION OF PROCEDURE The patient arrived to the procedure lab. The risks and benefits of the procedure as well as a full d escription of our services here and current unavailability of surgical backup were fully explained to the patient and/or their significant other prior to the catheterization. The Timeout was completed, verifying the correct patient and procedure. The patient's procedural site was prepped and draped in the usual fashion. Local anesthetic was given subcutaneously to right radial region with Lidocaine 2% . Using a modified Seldinger technique, arterial access was obtained via the right radial artery, a 6 Fr sheath was inserted. Right Coronary Artery selective angiography was then performed in multiple v iews using a 5 Fr. 4.0 [place] catheter. Left Coronary Artery selective angiography was performed in mu ltiple views using a 5 Fr. 4.0 [place] catheter.The arterial sheath was pulled and a TR Band was applie d for hemostasis w/ 12ml air CORONARY ANGIOGRAPHY DOMINANCE: Right Dominant LEFT HEART ASSESSMENT Left Ventricular Ejection Fraction: by Echo 55 % Normal LV wall motion Normal Left Ventricular systolic function LEFT MAIN: No significant disease noted LEFT ANTERIOR DESCENDING ARTERY: PROX LAD: Mild luminal irregularities less than 30% CIRCUMFLEX ARTERY: Mild luminal irregularities RIGHT CORONARY ARTERY: Mild luminal irregularities COMPLICATIONS No Complications PROCEDURE MEDICATIONS Versed 1 mg IV Fentanyl 50 mcg IV Oxygen: 2 L/min via nasal cannula Heparin given IA 12/27/2020 07:58:12 SUMMARY OF HEMODYNAMIC DATA Time AIR REST ECG 07:17:18 AO 154/81 (99) SA 08:05:07 Signed By Cam Marin MD On 12/27/2020 08:19:24 Cam Marin MD
== END 2020-12-27 09:45 | disposition home or self-care (01) ==
PROVIDERS: PCP Internal Medicine; Referring Provider Internal Medicine Cardiovascular Disease; Visit Provider Internal Medicine Cardiovascular Disease
DX: R07.9 Chest pain, unspecified (principal); I49.3 Ventricular premature depolarization; R06.00 Dyspnea, unspecified; N40.0 Benign prostatic hyperplasia without lower urinary tract symptoms; R25.1 Tremor, unspecified; Z79.899 Other long term (current) drug therapy; Z79.82 Long term (current) use of aspirin; Z86.010 Personal history of colon polyps; M10.9 Gout, unspecified; H91.93 Unspecified hearing loss, bilateral; E78.5 Hyperlipidemia, unspecified; G47.33 Obstructive sleep apnea (adult) (pediatric)
CPT/HCPCS: 36415; 80048; 85027; 85610; 85730; 93454; 99152; 99153; J7040; Q9967; C1769; C1894

== ENCOUNTER → 2021-11-29 | Outpatient (CLI) | payer MEDICARE, SELFPAY | END | disposition home or self-care (01) | LOC: PSN 10:02 | PROVIDERS: PCP Internal Medicine; Visit Provider Physician Assistant Medical | DX: I49.49 Other premature depolarization (principal) | CPT/HCPCS: 93225; 93226 ==

== ENCOUNTER → 2022-02-21 | Outpatient (CLI) | payer MEDICARE, SELFPAY | END | disposition home or self-care (01) | LOC: LABSPEC 16:09 | PROVIDERS: PCP Internal Medicine; Visit Provider Urology | DX: N30.00 Acute cystitis without hematuria (principal) | CPT/HCPCS: 87077; 87086; 87088; 87186 ==

== ENCOUNTER → 2023-03-03 | Outpatient (CLI) | payer MEDICARE, SELFPAY ==
[2023-03-03 15:16] LABS: PSA,Total - Annual Screen 2.61 ng/mL (0.00-4.00)
== END | disposition home or self-care (01) ==
PROVIDERS: PCP Internal Medicine; Referring Provider Urology; Visit Provider Urology
DX: Z12.5 Encounter for screening for malignant neoplasm of prostate (principal)
CPT/HCPCS: 36415; 84153; G0103

== ENCOUNTER → 2024-03-04 | Outpatient (CLI) | payer MEDICARE, SELFPAY ==
[2024-03-04 14:35] LABS: PSA,Total - Annual Screen 4.18 ng/mL (0.00-4.00)
== END | disposition home or self-care (01) ==
LOC: LAB 14:03
PROVIDERS: PCP Internal Medicine; Referring Provider Nurse Practitioner; Visit Provider Nurse Practitioner
DX: Z12.5 Encounter for screening for malignant neoplasm of prostate (principal)
CPT/HCPCS: 36415; 84153; G0103

== ENCOUNTER → 2024-09-30 | Outpatient (CLI) | payer MEDICARE, SELFPAY ==
[2024-09-30 14:43] LABS: PSA,Total- Diagnostic 3.89 ng/mL (0.00-4.00)
== END | disposition home or self-care (01) ==
LOC: LAB 13:23
PROVIDERS: PCP Internal Medicine; Referring Provider Urology; Visit Provider Urology
DX: R97.20 Elevated prostate specific antigen [PSA] (principal)
CPT/HCPCS: 36415; 84153